=== PATIENT | female | born 1985 | race Caucasian/White ===

== ENCOUNTER 2019-08-05 10:56 | Inpatient (IN) | payer MEDICAID ==
[~2019-08-05] VITALS: Ht 157.5 cm; Wt 67.1 kg
[~2019-08-05 10:56] MED LIST: ALLEGRA-D1 TAB.SR .; ESGIC-PLUS TABL1 TAB; LEVSIN/ANASP0.125 MG
[2019-08-06] MEDS ORDERED: SUDAFED 30 MG T30 MG PO (09:31)
[2019-08-06] MEDS ORDERED: PRENAVITE1 TAB PO (09:32)
[2019-08-06 09:39] VITALS: BP 103/61; Ht 157.5 cm; Wt 67.1 kg
[2019-08-06 09:48] LABS: HEMATOCRIT 34.4 % (36.0-48.0); HEMOGLOBIN 11.3 g/dL (12-16); MCH 31.7 pg (26.0-34.0); MCHC 32.8 g/dL (31.0-37.0); MCV 96.4 fL (80.0-100.0); MEAN PLATELET VOLUME 10.9 fL (7.4-10.4); RBC 3.57 10x6/uL (4.00-5.40); RDW 13.4 % (11.5-14.5); WBC 12.4 10x3/uL (4.8-10.8)
[2019-08-06 09:57] LABS: UDS - AMPHET NEGATIVE QUAL (NEGATIVE); UDS - BARB NEGATIVE QUAL (NEGATIVE); UDS - BENZO NEGATIVE QUAL (NEGATIVE); UDS - COCAINE NEGATIVE QUAL (NEGATIVE); UDS - OPIATE NEGATIVE QUAL (NEGATIVE); UDS - PCP NEGATIVE QUAL (NEGATIVE); UDS - THC NEGATIVE QUAL (NEGATIVE)
--- NOTE | 2019-08-06 22:47 | NUR ---
RN TO PT BEDSIDE FOR ROUNDING, PT STATES PAIN 3/10 TO PERINEUM, TUCKS PADS APPLIED, DERMOPLAST SPRAY APPLIED, PT DENIES ANY OTHER NEEDS AT THIS TIME, PT WITH IN ARMS BONDING, BED IN LOWEST POSITION, CALL LIGHT IN REACH, SIDE RAILS UPX2.
--- NOTE | 2019-08-07 00:25 | NUR ---
Pt moved to room 1279
[2019-08-07 01:01] VITALS: BP 117/64
--- NOTE | 2019-08-07 01:02 | NUR ---
RN TO PT BEDSIDE FOR ROUNDING, PT STATES PAIN IS 8/10 TO BACK, RN TO PROVIDE NON-PHARMACUTICAL MEASURES OF PAIN RELIEF AND IF IT IS UNRELIEVED MD WILL BE NOTIFIED. RN TO TAKE HEATING PAD TO PT AT THIS TIME. VSS. BED IN LOWEST POSITION, SIDE RAILS UPX2, CALL LIGHT IN REACH.
--- NOTE | 2019-08-07 01:34 | NUR ---
DR. MTZ CALLED AND NOTIFIED OF PT'S BACK PAIN, ORDER FOR 1 1 TIME DOSE OF PERCOCET 5MG PO AT THIS TIME.
[2019-08-07 04:49] VITALS: BP 94/58
[2019-08-07 06:10] LABS: RAPID PLASMA REAGIN Non Reactive (Non Reactive)
[2019-08-07 07:18] LABS: BASOPHILS 0.1 % (0-2); EOSINOPHILS 0.6 % (0-7); HEMATOCRIT 33.1 % (36.0-48.0); HEMOGLOBIN 10.9 g/dL (12-16); IMMATURE GRANULOCYTES 0.4 % (0-5); MCH 31.8 pg (26.0-34.0); MCHC 32.9 g/dL (31.0-37.0); MCV 96.5 fL (80.0-100.0); MEAN PLATELET VOLUME 10.3 fL (7.4-10.4); MONOCYTES 4.9 % (2-11); PLATELET COUNT 322 10x3/uL (130-400); RBC 3.43 10x6/uL (4.00-5.40); RDW 13.6 % (11.5-14.5)
[2019-08-07 07:22] LABS: WBC 15.9 10x3/uL (4.8-10.8)
--- NOTE | 2019-08-07 07:45 | NUR ---
AM ASSESSMENT COMPLETED CHARTED ON FLOWSHEET. PT DENIES CLOTS WITH VOIDS. VSS. SHE DOES COMPLAIN OF BACK PAIN/SORENESS WHERE EPIDURAL WAS, SLIGHT BRUISING AT SITE. EXPLAINED THAT ANESTHESIA WOULD BE NOTIFIED TO COME AND EVALUATE. INFANT IN ROOM, SIG OTHER ALSO PRESENT. SIDE RAILS UP X 2 WITH CALL LIGHT IN REACH.
[2019-08-07 07:47] VITALS: BP 116/63
--- NOTE | 2019-08-07 08:00 | NUR ---
DR ABEBE ON UNIT AND TO BEDSIDE TO ASSESS PT COMPLAINT OF BACK PAIN.
--- NOTE | 2019-08-07 08:12 | NUR ---
WARM BLANKET PROVIDED FOR PT TO LAY ON TO AID WITH BACK DISCOMFORT.
--- NOTE | 2019-08-07 11:00 | NUR ---
LARGE CUP OF ICE REQUESTED. NO OTHER NEEDS AT THIS TIME. CALL LIGHT IN REACH.
--- NOTE | 2019-08-07 13:14 | NUR ---
ROUNDING WITH PATIENT. PATIENT IN BED RESTING WITH BABY. STATES BACK PAIN 6 ON A SCALE OF 0 TO 10. IBUPROFEN GIVEN PER PATIENT REQUEST. PATIENT DENIES NEEDS AT THIS TIME.
--- NOTE | 2019-08-07 15:10 | NUR ---
PAIN REACCESSED. RATES PAIN 3 ON A SCALE OF 0 TO 10. STATES FEELS BETTER. DENIES NEEDS AT THIS TIME.
--- NOTE | 2019-08-07 17:00 | NUR ---
TRANSFERRED TO ROOM 1219 UNTIL TIME OF DISCHARGE LATER THIS EVENING. RATES PAIN AT 0/10 AND DENIES NEEDS AT THIS TIME.
--- NOTE | 2019-08-07 21:00 | NUR ---
PT DISCHARGED. VERBAL AND WRITTEN INSTRUCTIONS GIVEN AFTER GOING OVER THEM WITH PT. AND HER . NO PRESCRIPTIONS FOR THIS PT.
== END 2019-08-07 21:00 | disposition home or self-care (01) | DRG 807 ==
LOC: D.LD 08-06 08:04 → D.WS 08-07 17:28
PROVIDERS: ADMIT Student in an Organized Health Care Education/Training Program; ATTEND Student in an Organized Health Care Education/Training Program
PROC: 3E033VJ Introduction of Other Hormone into Peripheral Vein, Percutaneous Approach (ICD-10-PCS; principal; 2019-08-06)
PROC: 10E0XZZ Delivery of Products of Conception, External Approach (ICD-10-PCS; 2019-08-06)
PROC: 0W8NXZZ Division of Female Perineum, External Approach (ICD-10-PCS; 2019-08-06)
DX: O99.334 Smoking (tobacco) complicating childbirth (principal); Z37.0 Single live birth; F17.200 Nicotine dependence, unspecified, uncomplicated; Z3A.39 39 weeks gestation of pregnancy; O90.89 Other complications of the puerperium, not elsewhere classified; M54.9 Dorsalgia, unspecified

== ENCOUNTER 2019-11-11 14:26 | Emergency (ER) | payer MEDICAID ==
[~2019-11-11] VITALS: Ht 157.5 cm; Wt 59.1 kg
[~2019-11-11 14:26] MED LIST changes: +PRENAVITE1 TAB PO; +SUDAFED 30 MG T30 MG PO
[2019-11-11 14:35] VITALS: Ht 157.5 cm; Wt 59.1 kg
[2019-11-11 15:08] LABS: HEMATOCRIT 38.6 % (36.0-48.0); MCH 31.4 pg (26.0-34.0); MCHC 33.7 g/dL (31.0-37.0); MCV 93.2 fL (80.0-100.0); MEAN PLATELET VOLUME 9.4 fL (7.4-10.4); PLATELET COUNT 216 10x3/uL (130-400); RBC 4.14 10x6/uL (4.00-5.40); RDW 12.8 % (11.5-14.5); WBC 22.1 10x3/uL (4.8-10.8)
[2019-11-11 15:22] LABS: CALC OSMOLALITY 263 mosm/kg (275-300); CALCIUM 8.6 mg/dL (8.5-10.1); CARBON DIOXIDE 26.4 mmol/L (21.0-32.0); CHLORIDE - SERUM 98 mmol/L (98-107); CREATININE - SERUM 0.8 mg/dL (0.6-1.3); GLUCOSE 122 mg/dL (74-106); POTASSIUM - SERUM 3.4 mmol/L (3.5-5.1); SODIUM 131 mmol/L (136-145); UREA NITROGEN 13 mg/dL (7-18); eGFR NON AFRICAN AMERICAN 86 mL/min (90-120)
[2019-11-11 15:29] LABS: ALBUMIN 3.8 g/dL (3.4-5.0); ALKALINE PHOSPHATASE 56 U/L (30-120); ALT (SGPT) 27 U/L (10-68); AMYLASE - SERUM 27 U/L (25-115); PROTEIN - SERUM 6.9 g/dL (6.4-8.2)
[2019-11-11 15:38] LABS: LIPASE 39 U/L (73-393)
[2019-11-11 15:52] LABS: HCG URINE NEGATIVE (NEGATIVE)
[2019-11-11 15:54] LABS: BILIRUBIN NEGATIVE (NEGATIVE); KETONE LARGE mg/dL (NEGATIVE); NITRITE NEGATIVE (NEGATIVE); UROBILINOGEN NORMAL mg/dL (< 2)
[2019-11-11 15:56] LABS: BACTERIA MODERATE HPF (NONE SEEN)
[2019-11-11 17:05] LABS: LYMPHOCYTES 6 % (15-50); MONOCYTES 4 % (2-11); NEUTROPHILS 90 % (40-80); PLATELET ESTIMATE NORMAL
[2019-11-11] MEDS ORDERED: LEVAQUIN750 MG PO (17:48)
[2019-11-11] MEDS ORDERED: PHENERGAN25 M1 PO (17:48)
[2019-11-11] MEDS ORDERED: HYDROCODON-ACE1 EAC7 PO (17:48)
[2019-11-11 18:02] VITALS: BP 100/59
== END 2019-11-11 18:02 | disposition home or self-care (01) ==
LOC: D.ER 14:26
PROVIDERS: Emergency Medicine
DX: N39.0 Urinary tract infection, site not specified (principal); N12 Tubulo-interstitial nephritis, not specified as acute or chronic; M54.9 Dorsalgia, unspecified; R11.2 Nausea with vomiting, unspecified; R30.0 Dysuria